=== PATIENT | female | born 1990 | race African-American/Black ===

== ENCOUNTER 2017-10-28 18:09 | Emergency (ER) | payer OTHER ==
[~2017-10-28] VITALS: Ht 165.1 cm; Wt 72.6 kg
[2017-10-28 19:25] VITALS: BP 127/87
== END 2017-10-28 19:32 | disposition home or self-care (01) ==
LOC: FSED 18:09
DX: R11.2 Nausea with vomiting, unspecified (principal); N30.90 Cystitis, unspecified without hematuria
CPT/HCPCS: 80053; 85025